=== PATIENT | female | born 1940 | race African-American/Black ===

== ENCOUNTER 2017-05-21 19:56 | Emergency (ER) | payer OTHER ==
[~2017-05-21] VITALS: Ht 152.4 cm; Wt 64.8 kg
[2017-05-21] MEDS ORDERED: PROMETHAZINE HC25 M1 PO (22:08)
[2017-05-21 22:25] VITALS: BP 180/63
== END 2017-05-21 22:25 | disposition home or self-care (01) ==
LOC: EME 19:56
DX: G43.909 Migraine, unspecified, not intractable, without status migrainosus (principal); I10 Essential (primary) hypertension
CPT/HCPCS: 99281; 99284; J1885; J2550